=== PATIENT | female | born 1995 | race Caucasian/White ===

== ENCOUNTER 2021-08-08 19:52 | Outpatient (RCR) | payer OTHER, SELFPAY ==
--- NOTE | 2021-08-08 20:08 | PC.NURSE ---
pt presents to unit w c/o decreased movement since thursday.pt states pt has felt some movement today, the movements have not been as big . pt given marking button and instructed to press button whenever pt feels movement. pt given soda and water per pt requests. pt verbalizes understanding
[2021-08-08 20:16] VITALS: BP 120/68; PULSE 84
--- NOTE | 2021-08-08 20:28 | PC.NURSE ---
NO CTX PER PT OR PER TOCO. PT MARKED MARKER BUTTON 4 TIMES IN 20 MINUTES.
--- NOTE | 2021-08-08 20:30 | PC.NURSE ---
PT UPDATED ON DR AZALEA BAUTISTA. PT EDUCATED ON MOVEMENT AND INFORMED THAT ANY MOVEMENTS FELT AT THIS GESTATION COUNT MOVEMENT AND AT THIS GESTATIONAL AGE THE MOVEMENT MAY NOT BE VERY INTENSE. PT VERBALIZES UNDERSTANDING AND PRECAUTIONS REVIEWED.
== END 2021-08-08 20:30 | disposition home or self-care (01) ==
LOC: ANHOBOP 19:52
PROVIDERS: PCP Pediatrics; Visit Provider Obstetrics & Gynecology
DX: O36.8990 Maternal care for other specified fetal problems, unspecified trimester, not applicable or unspecified (principal); Z3A.00 Weeks of gestation of pregnancy not specified
CPT/HCPCS: 99199

== ENCOUNTER 2021-09-28 08:00 | Outpatient (RCR) | payer OTHER, SELFPAY ==
[2021-09-25 13:31] LABS: Hematocrit 37.6 % (37.0-47.0); Hemoglobin 12.9 g/dL (12.0-15.0); Mean Corpuscular HGB Conc 34.3 g/dl (32-36); Mean Corpuscular Hemoglobin 31.9 pg (26-34); Mean Corpuscular Volume 92.8 fl (80-100); Mean Platelet Volume 11.4 fl (7.4-10.4); Platelet Count Result 166 k/mm3 (150-375); Red Blood Count 4.05 M/mm3 (4.2-5.4); Red Cell Distribution Width 12.6 % (11.5-14.5); White Blood Count 12.4 K/mm3 (4.5-10.0)
[2021-09-25 13:42] LABS: Glucose 1 Hour PP 50gm Dose 121 mg/dL
[2021-09-25 14:24] LABS: HIV 1/2 Ab P24 Ag Result Negative (Negative)
[2021-09-28] MEDS: RHO(D) IMMUNE GLOBULIN 300 MCG/2 ML SYRINGE IM (09:44)
== END 2021-12-24 23:59 | disposition home or self-care (01) ==
LOC: ANHLAB 08:00
PROVIDERS: PCP Pediatrics; Visit Provider Obstetrics & Gynecology
DX: Z11.4 Encounter for screening for human immunodeficiency virus [HIV] (principal); Z29.13 Encounter for prophylactic Rho(D) immune globulin; O36.0190 Maternal care for anti-D [Rh] antibodies, unspecified trimester, not applicable or unspecified; Z3A.00 Weeks of gestation of pregnancy not specified
CPT/HCPCS: 36415; 82947; 85027; 85461; 86703; 90384; 96372; G0432; J2790

== ENCOUNTER 2021-11-04 21:11 | Observation (INO) | payer OTHER, SELFPAY ==
[2021-11-04 21:32] VITALS: BP 121/74; PULSE 94
--- NOTE | 2021-11-04 21:43 | PC.NURSE ---
2136- called Dr. Randle. informed of pt admission for bleeding. pt stated that she wiped twice today and had a thick mucousy yellow/blood discharge with wiping. no dripping. no bright red. pt is feeling alot of movement today. no sex recently. no cervical exams recently. per pt baby is measuring 3 weeks small but no other complications. orders received for NST, cervical exam. if reactive NST and closed cervical exam pt may d/c home.
[2021-11-04 21:45] VITALS: BP 125/77; PULSE 87
[2021-11-04 22:00] VITALS: BP 124/62; PULSE 83
[2021-11-04 22:17] VITALS: BMI 34.7
--- NOTE | 2021-11-04 22:30 | PC.NURSE ---
cervical exam preformed- closed/-3 station
--- NOTE | 2021-11-06 15:13 | PM.OBTRLD ---
OB - Triage/Final Diagnosis Visit Information Comments/Additional reasons for admission: I have assessed the risk for this patient, Gretel Dodson, and determined that she would benefit from observation care. Final Diagnosis (1) Vaginal discharge during : Code(s): O26.899 - Other specified related conditions, unspecified trimester; N89.8 - Other specified noninflammatory disorders of vagina Status: Acute
== END 2021-11-04 22:30 | disposition home or self-care (01) ==
PROVIDERS: Admitting Provider Obstetrics & Gynecology; PCP Nurse Practitioner Family; Visit Provider Obstetrics & Gynecology
DX: O26.893 Other specified pregnancy related conditions, third trimester (principal); N89.8 Other specified noninflammatory disorders of vagina; Z3A.34 34 weeks gestation of pregnancy
CPT/HCPCS: 59025; G0378; G0379

== ENCOUNTER 2021-11-26 12:22 | Inpatient (IN) | payer OTHER, SELFPAY ==
[2021-11-26] VITALS (23 sets, daily range): BP systolic 116–145; BP diastolic 57–86; PULSE 75–99; TEMP 37.2–37.4; BMI 36.8
--- OUTSIDE RECORDS SUMMARY | 2021-11-26 17:18 | XMS_ITS | Encounter Summary ---
:1995 Author Reason for Visit return OB visit Assessment and Plan 1. Small for gestational age fet us ? US, obstetric, 3rd trimest er Discussion Note: None recorded.Patient educational handouts: No information available. Plan of Care Reminders Provider Appointments Procedure 15 Kr crystal Randle MD 12/02/2021 4:00PM Lab None ? ? recorded. Referral None ? ? recorded. Procedures None ? ? recorded. Surgeries None ? ? recorded. Imaging US, [place] [facility] Obstetric, 3Rd 10/02/2021 [facility] [place] Trimester (Imaging) Medications No Medications Reported Notes: PNV/ tylenol prn Medications Administered None recorded. Vitals Weight Blood Pressure 183 lbs 104/62 mm[Hg] Results Lab Results None recorded. Allergies Code Code System Name Reaction Severity Onset NKDA ? ? ? Problems Name Status Onset Date Source ? Active 05/16/2021 ? Procedures Date Name Performed by ? 10/02/2021 US, Obstetric, 3Rd Trimester [facility] (Imaging)
--- OUTSIDE RECORDS SUMMARY | 2021-11-26 17:18 | XMS_ITS | Encounter Summary ---
:1995 Author Reason for Visit return OB visit Assessment and Plan 1. growth restriction Discussion Note: None recorded.Patient educational handouts: No information available. Plan of Care Reminders Provider Appointments Procedure 15 Kr crystal Randle MD 12/02/2021 4:00PM Lab None ? ? recorded. Referral None ? ? recorded. Procedures None ? ? recorded. Surgeries None ? ? recorded. Imaging None ? ? recorded. Medications No Medications Reported Notes: PNV/ tylenol prn Medications Administered None recorded. Vitals Weight Blood Pressure 192 lbs 110/67 mm[Hg] Results Lab Results None recorded. Allergies Code Code System Name Reaction Severity Onset NKDA ? ? ? Problems Name Status Onset Date Source ? Active 05/16/2021 ? Procedures Date Name Performed by ? 10/02/2021 US, Obstetric, 3Rd Trimester [place] [facility] (Imaging) [address] [place], [place] [address] (Wzvr
--- OUTSIDE RECORDS SUMMARY | 2021-11-26 17:18 | XMS_ITS ---
:1995 Author Care Team Providers Name Role Phone Jer Primary Care Provider Unavailable Allergies Code Code System Name Reaction Severity Status Onset NKDA ? Medications Name Status Start Date Stop Date ? ? amoxicillin 500 mg capsule Completed ? 12/19 azithromycin 250 mg tablet Completed ? 12/19 Depo-Provera 150 mg/mL intramuscular suspension Completed ? 03/02/2018 Inject 1 mL every 3 months by intramuscular route. medroxyprogesterone 150 mg/mL intramuscular syringe Completed ? 06/21/2020 INJECT 1 ML EVERY 3 MONTHS BY INTRAMUSCULAR ROUTE. yzojabuq-eqdmexaot-fmsgklin 3.5 mg/mL-10,000 unit/mL-0.1% eye dr ops Completed ? 06/14/2019 INSTILL ONE DROP 4 TIMES A DAY INTO RIGHT EYE FOR 7 DAYS ondansetron 4 mg disintegrating tablet Completed ? 07/24/[address]21 PLACE 1 TABLET EVERY 6 8 HOURS BY TRANSLINGUAL ROUTE. Provera 10 mg tablet Completed ? 01/15/2021 Take 1 tablet every day by oral route for 10 days. Vitamin B-6 25 mg tablet Completed ? 021 TAKE 1 TABLET 3 TIMES A DAY BY ORAL ROUTE. Notes: PNV/ tylenol prn Problems Name Status Onset Date Source ? Active 05/16/2021 ? Procedures Date Name Performed by ? 04/26/2021 US, Obstetric, 1St Trimester [place] [facility] (Imaging) [address] [place], [place] [address] ([address]) 05/21/2021 US, Obstetric, Maternal [place] [facility]
--- OUTSIDE RECORDS SUMMARY | 2021-11-26 17:19 | XMS_ITS | Encounter Summary ---
:1995 Author Reason for Visit return OB visit Assessment and Plan 1. Routine care ? glucose tolerance test, ge stational, 1-hour ? CBC ? HIV (1+2) Ab screen, serum ? Rh immune globulin screeni ng Discussion Note: None recorded.Patient educational handouts: No information available. Plan of Care Reminders Provider Appointments Procedure 15 Kr crystal Randle MD 12/02/2021 4:00PM Lab Glucose [facility] Tolerance Test, 08/28/2021 [facility] (Lab) Gestational, 1-Hour ? Cbc [facility] 08/28/2021 [facility] (Lab) ? HIV (1+2) Ab [facility] oseph Screen, Serum 08/28/2021 [facility] (Lab) ? Rh Immune [facility] ph Globulin Screening 08/28/2021 [facility] (Lab) Referral None ? ? recorded. Procedures None ? ? recorded. Surgeries None ? ? recorded. Imaging None ? ? recorded. Medications No Medications Reported Notes: PNV/ tylenol prn Medications Administered None recorded. Vitals
--- OUTSIDE RECORDS SUMMARY | 2021-11-26 17:19 | XMS_ITS ---
:1995 Author Allergies Code Code System Name Reaction Severity Status Onset NKDA ? Medications Name Status Start Date Stop Date ? ? amoxicillin 500 mg capsule Completed ? 12/19 azithromycin 250 mg tablet Completed ? 12/19 Depo-Provera 150 mg/mL intramuscular suspension Completed ? 03/02/2018 Inject 1 mL every 3 months by intramuscular route. IM right hip sj medroxyprogesterone 150 mg/mL intramuscular syringe Completed ? 06/21/2020 INJECT 1 ML EVERY 3 MONTHS BY INTRAMUSCULAR ROUTE. xdanyfxv-dwxzvzckg-ztugpbjs 3.5 mg/mL-10,000 unit/mL-0.1% eye dr ops Completed ? 06/14/2019 INSTILL ONE DROP 4 TIMES A DAY INTO RIGHT EYE FOR 7 DAYS Provera 10 mg tablet Active ? Not availab le Take 1 tablet every day by oral route for 10 days. Problems None recorded. Procedures Notes: None per pt -lw Results Lab Results Date Name Specimen Result Interpretation Description Value Range Status Address ? 06/21/2020 Pap, IG + ? Diagnosis: comment ? Jenise luz [facility] Reflex HPV PSC: 1 20 (16+18+45) Ryan [place] ? ? ? Specimen comment ? Final [facility] p Adequacy: PSC: 12 0 [address] [facility]
--- NOTE | 2021-11-26 18:21 | LDADM ---
This patient, Gretel Dodson, was admitted to Labor/Delivery/Recovery 118 on 11/26/21 at 12:22. Plans for labor, pain management and were discussed with patient. Patient/family oriented to hospital policies and general routines including ID bracelet, bed and alarms, visiting hours, pain management, procedures, bathroom and other care routines, personal items, smoking policy, room service/diet and guest tray routines, security routines, and visiting hours. Patient/Family are encouraged to report perceived risks to care and to ask questions if they do not understand what they are told or what they should do. See OBIX for further documentation.
[2021-11-26 19:11] LABS: Basophils Percent Auto 0.2 % (0.2-1.2); Eosinophils Absolute Auto 0.1 K/mm3 (0-0.3); Eosinophils Percent Auto 0.5 % (0-4.4); Hemoglobin 11.9 g/dL (12.0-15.0); Immature Granulocyte Absolute 0.09 K/mm3 (0.00-0.031); Immature Granulocyte Percent A 0.8 % (0-0.5); Lymphocytes Absolute Auto 1.69 K/mm3 (0.9-3.2); Lymphocytes Percent Auto 15.2 % (18.3-44.2); Mean Corpuscular Hemoglobin 30.4 pg (26-34); Mean Corpuscular Volume 89.5 fl (80-100); Mean Platelet Volume 12.4 fl (7.4-10.4); Monocytes Absolute Auto 0.8 K/mm3 (0.1-0.6); Monocytes Percent Auto 6.7 % (2.6-8.5); Neutrophils Absolute Auto 8.5 K/mm3 (1.3-6.7); Neutrophils Percent Auto 76.6 % (45.5-73.1); Platelet Count Result 157 k/mm3 (150-375); Red Blood Count 3.91 M/mm3 (4.2-5.4); White Blood Count 11.1 K/mm3 (4.5-10.0)
[2021-11-26] MEDS: DINOPROSTONE 10 MG VAG INSERT VAGINAL (19:17)
[2021-11-26] MEDS: LACTATED RINGERS 1,000 ML 125 ML IV CONT (23:19)
[2021-11-27] VITALS (80 sets, daily range): BP systolic 105–184; BP diastolic 48–163; PULSE 82–143; RESP 16–20; TEMP 36.2–37.2; O2SAT 95–100
--- NOTE | 2021-11-27 00:22 | WPDANESEPPF ---
Anes - Initial Pre Proc Eval Procedure: labor epidural Date/Time: 11/27/21 00:22 Surgeon: Rosette Randle MD Pre Op Diagnosis: labor pain Pre Op Diagnosis: IOL Patient Data Age: 26 Gender: F Height: 1.6 m Weight: 94.5 kg Last Vital Signs Temp 37.2 C 11/26/21 23:20 Pulse 95 11/27/21 00:18 BP 126/61 11/27/21 00:18 Pulse Ox 100 11/27/21 00:17 Allergies Allergy/AdvReac Type Severity Reaction Status Date / Time No Known Allergies Allergy Verified 11/26/21 11:36 Home Medications Medication Instructions Recorded Confirmed Type -eakq fum-folic ac-om3 1 pkg PO DAILY 11/04/21 11/26/21 History Laboratory Tests 11/26/21 11/26/21 11/26/21 18:59 18:59 18:59 WBC 11.1 K/mm3 H K/mm3 (4.5-10.0) RBC 3.91 M/mm3 L M/mm3 (4.2-5.4) Hgb 11.9 g/dL L g/dL (12.0-15.0) Hct 35.0 % L % (37.0-47.0) MCV 89.5 fl fl (80-100) MCH 30.4 pg pg (26-34) MCHC 34.0 g/dl g/dl (32-36) RDW 13.0 % % (11.5-14.5) Plt Count 157 k/mm3 k/mm3 (150-375) MPV 12.4 fl H fl (7.4-10.4) Immature Gran % (Auto) 0.8 % H % (0-0.5) Neut % (Auto) 76.6 % H % (45.5-73.1) Lymph % (Auto) 15.2 % L % (18.3-44.2) [place] % (Auto) 6.7 % % (2.6-8.5) Eos % (Auto) 0.5 % % (0-4.4) Baso % (Auto) 0.2 % % (0.2-1.2) Lymph # (Auto) 1.69 K/mm3 K/mm3 (0.9-3.2) [place] # (Auto) 0.8 K/mm3 H K/mm3 (0.1-0.6) Eos # (Auto) 0.1 K/mm3 K/mm3 (0-0.3) Baso # (Auto) 0.0 K/mm3 K/mm3 (0.0-0.1) Abs Immat Gran (auto) 0.09 K/mm3 H K/mm3 (0.00-0.031) Absolute Neuts (auto) 8.5 K/mm3 H K/mm3 (1.3-6.7) Absolute Nucleated RBC 0.0 K/mm3 K/mm3 (0.0-0.012) Nucleated RBC % 0.0 % % (0.0-0.2) RPR Pending Blood Type AB Negative Antibody Screen Positive Antibody Identification Passive Due to RH Imm Glob Antigen Identification Cancelled MICHAEL, IgG Interpret Negative MICHAEL, Poly Interpret Neg MICHAEL, Complement Interp Not Performed Patient hx anesthesia problems: none Family hx anesthesia problems: none Results Review: All pre-operative results and documents have been reviewed as part of the pre-operative evaluation. [facility] Family History Family History Grandparent Hypertension Diabetes mellitus Social History Social History (Updated 11/08/21 @ 15:55 by Cristiane Bender MA) Smoking status: Never smoker Second hand tobacco smoke exposure: No Alcohol intake: never Substance use: never Gender identity (if verbalized by the patient): Female Sexual Orientation (if Verbalized by the Patient): Straight or Heterosexual Spiritual care concerns: No Agree to blood products: No Anes - Eval Final PreProcedure Day of Procedure 11/27/21 00:22 Patient weight: obese ASA classification: II Anesthesia type and monitoring: regional epidural and standard monitoring Results Review: All pre-operative results and documents have been reviewed as part of the pre-operative evaluation. Informed Consent: The patient's anesthetic plan and its attendant risks and benefits were discussed with the patient/family/POA. Questions were solicited and answers provided to the satisfaction of the patient/family/POA.
[2021-11-27] MEDS: LACTATED RINGERS 1,000 ML 125 ML IV CONT (03:16)
[2021-11-27] MEDS: OXYTOCIN 30 UNITS/NS 500 ML 30 UNITS/500 ML BAG IV CONT (03:16)
--- NOTE | 2021-11-27 06:31 | PM.IMHP ---
H&P: HPI History of Present Illness Date/Time: 11/27/21 06:31 Gretel is a 26yo @ 37.3wks (LIANET 12/15/21) who was admitted in the PM of 11/26/21 after routine testing for IUGR revealed two prolonged decelerations in 4 hours of monitoring. BPP was 8/8, but due to the prolonged decels, decision was made for admission and induction of labor as she was term. She reported good movement. No VB or LOF. Occasional contractions. Her induction was started with cervidil, but intermittent prolonged decels recurred. She did undergo epidural placement in the event of need for c/s. The cervidil was removed and pitocin was started, however, decels continued. Her has been complicated by: - IUGR; w/ MFM consult and changing of her LIANET, EFW now 41%ile - Rh neg, s/p rhogam Chief Complaint: heart decelerations Review of Systems Review of Systems: All systems reviewed & are unremarkable except as noted in HPI and below (HPI) [facility] Family History Family History Grandparent Hypertension Diabetes mellitus Social History Social History Smoking status: Never smoker Second hand tobacco smoke exposure: No Alcohol intake: never Substance use: never Gender identity (if verbalized by the patient): Female Sexual Orientation (if Verbalized by the Patient): Straight or Heterosexual Spiritual care concerns: No Agree to blood products: No Meds Home Medications and Allergies Home Medications Medication Instructions Recorded Confirmed Type [id number]-[id number] fum-folic ac-om3 1 pkg PO DAILY 11/04/21 11/26/21 History Allergies Allergy/AdvReac Type Severity Reaction Status Date / Time No Known Allergies Allergy Verified 11/26/21 11:36 Vital Signs Vital Signs - 24 hr 11/26/21 18:38 11/26/21 18:45 11/26/21 19:00 Temperature Pulse Rate 96 99 96 Respiratory Rate Blood Pressure 142/86 H 142/86 H 139/74 Pulse Oximetry 11/26/21 19:02 11/26/21 19:30 11/26/21 19:46 Temperature 99.4 F Pulse Rate 87 87 Respiratory Rate Blood Pressure 145/85 H 141/74 H Pulse Oximetry 11/26/21 20:00 11/26/21 20:15 11/26/21 20:30 Temperature Pulse Rate 98 92 85 Respiratory Rate Blood Pressure 145/85 H 133/78 137/73 Pulse Oximetry 11/26/21 20:45 11/26/21 21:00 11/26/21 21:15 Temperature Pulse Rate 91 96 90 Respiratory Rate Blood Pressure 129/73 141/79 H 126/80 Pulse Oximetry 11/26/21 21:30 11/26/21 21:46 11/26/21 22:00 Temperature Pulse Rate 87 78 86 Respiratory Rate Blood Pressure 135/76 136/67 127/67 Pulse Oximetry 11/26/21 22:15 11/26/21 22:31 11/26/21 22:45 Temperature Pulse Rate 82 75 84 Respiratory Rate Blood Pressure 126/66 130/61 128/71 Pulse Oximetry 11/26/21 23:00 11/26/21 23:15 11/26/21 23:20 Temperature 98.9 F Pulse Rate 91 89 Respiratory Rate Blood Pressure 129/73 124/72 Pulse Oximetry 11/26/21 23:30 11/26/21 23:46 11/27/21 00:00 Temperature Pulse Rate 79 78 97 Respiratory Rate Blood Pressure 133/66 116/57 L 130/75 Pulse Oximetry 11/27/21 00:02 11/27/21 00:05 11/27/21 00:07 Temperature Pulse Rate 98 Respiratory Rate Blood Pressure 139/80 Pulse Oximetry 100 100 11/27/21 00:12 11/27/21 00:14 11/27/21 00:16 Temperature Pulse Rate 123 H 91 97 Respiratory Rate Blood Pressure 146/89 H 141/64 H 137/71 Pulse Oximetry 100 11/27/21 00:17 11/27/21 00:18 11/27/21 00:22 Temperature Pulse Rate 95 Respiratory Rate Blood Pressure 126/61 Pulse Oximetry 100 100 11/27/21 00:27 11/27/21 00:31 11/27/21 00:32 Temperature Pulse Rate 83 Respiratory Rate Blood Pressure 129/60 Pulse Oximetry 100 100 11/27/21 00:37 11/27/21 00:42 11/27/21 00:47 Temperature Pulse Rate Respiratory Rate Blood Pressure Puls
--- NOTE | 2021-11-27 06:42 | WPDHPUPDATE1 ---
History and Physical Update Update Date/Time: 11/27/21 06:42 History and Physical has been reviewed, including an updated exam of the patient. There are NO changes in the patient's condition. Risks, benefits, and alternatives have been discussed and questions answered. Patient agrees to proceed with procedure.
--- NOTE | 2021-11-27 07:18 | WPDANESEFPP ---
Anes - Eval Final PreProcedure Day of Procedure 11/27/21 07:18 Patient weight: obese Heart: regular rate and rhythm Lungs: clear to auscultation Airway: Mallampati scale class II Neurological: alert and oriented ASA classification: II Emergent: no Anesthetic plan: proceed Anesthesia type and monitoring: regional epidural and standard monitoring Results Review: All pre-operative results and documents have been reviewed as part of the pre-operative evaluation. Informed Consent: The patient's anesthetic plan and its attendant risks and benefits were discussed with the patient/family/POA. Questions were solicited and answers provided to the satisfaction of the patient/family/POA.
[2021-11-27] MEDS: ceFAZolin 2 GM/D5W 50 ML 2 GM/50 ML BAG IVPB (08:22)
--- NOTE | 2021-11-27 09:23 | PM.OBPRVD ---
OB - Delivery Note Procedure Delivery date: 11/27/21 Procedure: Procedures Operation Date: 11/27/21 08:00 <No data on this case meets the specified criteria> events: Labor Induction (due to prolonged decels noted on NST) Intrapartal events: Deceleration (continued late and prolonged decels) Induction method: per cervidil protocol Delivery augmentation: pitocin Delivery monitor: external FHT and external uterine Route of delivery: Specimen: Yes (placenta) Quantitative Blood Loss (ml): 355 Anesthesia type: Epidural Disposition: floor Baby Date of : 11/27/21 Time of : 08:47 Weeks of gestation at delivery: 37 (.3) Infant gender: Male Weight (pounds): 6 Weight (ounces): 5 presentation: vertex position: Right Occiput Posterior Placenta delivery description: Expressed cord vessel description: 3 Vessels score one minute: 9 score five minutes: 9 Narrative: She was counseled on all risks and benefits in detail. She was taken to the operating room where epidural was found to be adequate. She was then prepped and draped in the normal sterile fashion. She received 2g Ancef and a time out was performed. A Pfannenstiel incision was made in the skin and carried down to the underlying fascia. The fascia was nicked on either side of the midline and the fascial incision was extended laterally and superiorly. The fascia was then elevated and the underlying rectus muscles were dissected off the fascia, superiorly and inferiorly. The rectus muscles were then in the midline and the peritoneum was entered bluntly. Once adequate exposure was obtained, a Mobius self retractor was placed within the abdomen. A bladder flap was created. A low transverse incision was made on the lower uterine segment and clear fluid was noted. The occiput was brought to the hysterotomy and the head was easily delivered. The shoulder and body then followed without complications. The infant had spontaneous cry and the mouth and nose were bulb suctioned. The cord was clamped and cut and the infant was handed off to the awaiting pediatric nurse. A segment of the cord was collected for cord gases. The remaining cord blood was collected for typing. With pitocin infusing, the placenta delivered with gentle traction on the cord without complications. The uterus was then cleared out of all clots and debris using a clean, moist lap. The hysterotomy was then repaired in a running, interlocking fashion using 0 Vicryl. A second layer imbricating suture was then made using 0 Vicryl. An additional figure of eight using 0 Vicryl was placed in the mid posterior portion of the hysterotomy for hemostasis. The hysterotomy was found to be hemostatic and good uterine tone was noted. The bilateral adnexa were examined and found to be normal. The pelvis was cleared of all clots and fluid. The Mobius retractor was removed from the abdomen. The peritoneum, muscle, and fascia were examined and made hemostatic with bovie cautery. The fascia was then repaired using a 0 Vicryl suture in a running fashion. The subcutaneous tissue was then irrigated and made hemostatic with bovie cautery. The subcutaneous tissue was then reapproximated using 2-0 Vicryl. The skin was then closed using 4-0 Monocryl in a running subcuticular fashion. A clean dressing was then placed over the incision. Sponge, lap, needle and instrument counts were correct at the end of the procedure x2. The patient tolerated the procedure well and was taken to recovery in a stable condition. [facility] Delivery Billing Delivery Delivery: Delivery Charge
[2021-11-27] MEDS: OXYTOCIN 30 UNITS/NS 500 ML 30 UNITS/500 ML BAG 125 UNITS IV CONT (09:50)
--- NOTE | 2021-11-27 11:05 | SUR.PHASEI ---
Pt taken into nursery via stretcher to watch baby get first bath.
--- NOTE | 2021-11-27 11:10 | SUR.PHASEI ---
Report given to Jennifer Palmer RN. Pt going to room 279 for pp care once recovery completed.
[2021-11-27] MEDS: MORPHINE SULFATE (*CRX) 2 MG/ML INJ 3 MG IV PUSH (11:13)
--- NOTE | 2021-11-27 11:30 | SUR.PHASEI ---
Recovery complete. Pt instructed to let staff know when she is ready to move up to pp room. Pt still visiting with baby in nursery at this time.
--- NOTE | 2021-11-27 12:00 | SUR.PHASEI ---
Pt moved to pp floor at this time via stretcher. , spouse, belongings and chart all went up together.
--- NOTE | 2021-11-27 12:04 | PC.NURSE ---
Patient transferred to post room #279 via stretcher. Support person present. Oriented to unit, room, information board, rooming in, admission packet and security measures. Patient verbalizes understanding.
[2021-11-27 12:12] LABS: Rapid Plasma Reagin Non-Reactive (NonReactive)
[2021-11-27] MEDS: DEXTROSE 5%/0.45% SOD CHL 1,000 ML 125 ML IV CONT (12:40)
[2021-11-27] MEDS: KETOROLAC 30 MG/ML VIAL (*BKC) IV PUSH ×2 (13:56→19:11)
--- NOTE | 2021-11-27 16:04 | PC.NURSE ---
1310 - Introductions were made and mother led the discussion of her desires on how she wants to feeding her baby. Reviewed handwashing to prevent infection before and after taking care of her baby while mom finishes eating. Mother verbalizes baby fed downstairs well and it was easier on the left breast. Discussed how to watch for early feeding cues, place skin to skin, then feeding baby when infant is ready or every 2-3 hours. Reviewed positioning/alignment with the use of the written/visuals in mom and baby guide. Encouraged mother with infant skin to skin, then to the breast. Baby to the right breast in football position using nipple to nose no latch. Nipples flat are a grade 2 on everting. Attempting for 10-15 min. has a 140 degree gape, mother brings baby to the breast and baby doesn't attempt to latch and at times doses off. Mom encouraged with skin to skin vertically between her breast, hand expressed colostrum to infants mouth and demonstrates understanding of how to stimulate baby. Reviewed there is to be no pain with , how to detach from the breast if there is a latch, visuals to watch for to confirm effective which confirm ineffective at this time. Reviewed effective latching with resources tool/handout/mom and baby guide. Infant was unable to latch. 1330 - RN assisted mother with baby to the left breast in football position with no latch, falt nipple grade 2 and the same result as with the right breast. Discussed tool, techniques and options with risk and benefits. Mother is understanding of feeding as needed to meet requirements. Mother has verbalized understanding/ demonstrated watching for feeding cues for responsive feeding or how to stimulate to initiate from the start of the last feeding. Mother voiced understanding to feed when she sees feeding cues, 8-12 times in 24 hours approximately every 2-3 hours from the start of the last feeding or she has discomfort with nursing. 1400 - Breast pump provided due to ineffective of a 37 3/7 EGA infant. Reviewed information regarding pump care, hand washing, nipple care and pumping 8 times in 24 hours (1-2 at night) for 10-15 minutes. Discussed she may want to pump after feedings or between feedings. If after feeding, rest for 5-10 minutes. Get something to eat/drink, use the restroom, then pump. Collection and storage of breast milk per mom and baby guide. Encouraged mom to place infant skin to skin, breast massage and use hand expression and/or a breast pump in a relaxing atmosphere. Reviewed recording pumping schedule on the feeding sheet or pumping log. Referred to the visual handout along with the mom and baby guide as a resource and when to call a provider. Reported to primary RN.
[2021-11-28 05:00] VITALS: BP 124/72; PULSE 80; RESP 18; TEMP 37
[2021-11-28 05:37] LABS: Basophils Percent Auto 0.2 % (0.2-1.2); Eosinophils Percent Auto 0.3 % (0-4.4); Hematocrit 31.2 % (37.0-47.0); Hemoglobin 10.1 g/dL (12.0-15.0); Immature Granulocyte Absolute 0.06 K/mm3 (0.00-0.031); Immature Granulocyte Percent A 0.6 % (0-0.5); Lymphocytes Absolute Auto 1.26 K/mm3 (0.9-3.2); Mean Corpuscular HGB Conc 32.4 g/dl (32-36); Mean Corpuscular Hemoglobin 30.5 pg (26-34); Mean Corpuscular Volume 94.3 fl (80-100); Monocytes Absolute Auto 0.8 K/mm3 (0.1-0.6); Monocytes Percent Auto 7.5 % (2.6-8.5); Neutrophils Absolute Auto 8.3 K/mm3 (1.3-6.7); Neutrophils Percent Auto 79.4 % (45.5-73.1); Platelet Count Result 122 k/mm3 (150-375); Red Blood Count 3.31 M/mm3 (4.2-5.4); Red Cell Distribution Width 13.2 % (11.5-14.5); White Blood Count 10.5 K/mm3 (4.5-10.0)
[2021-11-28 07:35] VITALS: BP 122/77; PULSE 108; RESP 16; TEMP 36.7; O2SAT 99
[2021-11-28] MEDS: MULTIVIT/MIN/PREN/FOL AC/IRON TABLET 1 TAB PO (07:54)
[2021-11-28] MEDS: LORATADINE 10 MG TABLET PO (07:54)
[2021-11-28] MEDS: DOCUSATE SODIUM 100 MG CAPSULE PO ×2 (07:54→17:10)
[2021-11-28] MEDS: IBUPROFEN 600 MG TABLET PO ×3 (07:54→18:58)
--- NOTE | 2021-11-28 09:16 | P.PNOB_ITS ---
OB - PN: Subj Subjective Date/time seen: 11/28/21 09:16 26-year-old primigravid patient 1 day status post for IUGR and decelerations. She is ambulating voiding tolerating regular diet and pain med icine is adequately controlling her discomfort. She will be breast feeding but at this point the baby's having little bit of trouble latching on. Otherwise she has no significant complaints or concerns today and overall doing very well. OB - PN: Obj Data Labs CBC & Chem 7: 11/28/21 04:52 Labs: Laboratory Results - last 24 hr 11/26/21 11/28/21 18:59 04:52 WBC 10.5 H RBC 3.31 L Hgb 10.1 L Hct 31.2 L MCV 94.3 D MCH 30.5 MCHC 32.4 RDW 13.2 Plt Count 122 L MPV 12.0 H Immature Gran % (Auto) 0.6 H Neut % (Auto) 79.4 H Lymph % (Auto) 12.0 L [place] % (Auto) 7.5 Eos % (Auto) 0.3 Baso % (Auto) 0.2 Lymph # (Auto) 1.26 [place] # (Auto) 0.8 H Eos # (Auto) 0.0 Baso # (Auto) 0.0 Abs Immat Gran (auto) 0.06 H Absolute Neuts (auto) 8.3 H Absolute Nucleated RBC 0.0 Nucleated RBC % 0.0 RPR Non-reactive OB - PN A/P Plan day: 1 Plan: routine care Comments: Continue to work with breast feeding. Baby will be circumcised prior to discharge which will likely be over the weekend. Time Spent With Patient Time: Total time spent is greater than 50% in coordination of care (as documented) at patient's floor/unit and/or counseling patient: Time with patient: less than 15 minutes
--- NOTE | 2021-11-28 09:30 | WPDANLDPN2 ---
Anes-Prog Note L&D Date/Time: 11/28/21 09:30 Comfortable throughout: section Neuraxial method: epidural Epidural/Spinal procedure site: clean & non-tender Neuro status: Neuro function grossly intact. Cardiovascular status: normal Respiratory status: normal Airway patency: baseline Mental status: baseline Post-Op hydration status: normal Vital Signs: Last Vital Signs Temp 37.0 C 11/28/21 05:00 Pulse 80 11/28/21 05:00 Resp 18 11/28/21 05:00 BP 124/72 11/28/21 05:00 Pulse Ox 99 11/27/21 15:30 Pain score (VAS): 3 I/O: Intake & Output 11/27/21 11/28/21 11/28/21 23:59 07:59 15:59 Intake Total 1500 700 Output Total 200 1200 Balance 1300 -500 Post-procedural complaints: none Patient feedback: Patient satisfied with anesthetic care.
--- NOTE | 2021-11-28 09:30 | WPDANLDNPN2 ---
Anes-Prog Note L&D-Neuraxial Date/Time: 11/28/21 09:30 Neuraxial medications: epidural PF morphine Opiod-related complaints: none Patient feedback: Patient satisfied with post-operative pain management.
--- NOTE | 2021-11-28 11:05 | PC.NURSE ---
0800 - Mother led conversation with her experience with feeding baby so far. Infant has mostly been sleepy with good efforts at 0300. Mother has a pumping schedule related to ineffective feedings and has been supplemented with formula. Mother has decided she would like to attempt to breastfeed with a nipple shield. Baby is sleepy with no efforts at this time. Reviewed skin to skin and hand expression. Mom will call out when feeding cues are visualized. 0907 - RN called to the room for assisting to breast. is skin to skin with dad and feeding cues are visualized. Infant is placed skin to skin with mom once she finishes in the restroom. Feeding cues are seen with baby vertically between the breast, then baby makes no efforts at the breast. Mom is wanting to try to encourage latching with the nipple shield tool. Risks and benefits discussed. Attempts with the nipple shield with only two ineffective latches. Infant is sleepy.
[2021-11-28] MEDS: SIMETHICONE 80 MG TAB.CHEW PO (17:09)
[2021-11-28] MEDS: HYDROcodone/acetaminophen (*CRX) 5-325 MG TABLET 1 TAB PO (17:09)
[2021-11-28 18:42] VITALS: BP 119/64; PULSE 77; RESP 16; TEMP 37.2
[2021-11-29] MEDS: HYDROcodone/acetaminophen (*CRX) 5-325 MG TABLET 1 TAB PO ×4 (01:34→23:00)
[2021-11-29] MEDS: IBUPROFEN 600 MG TABLET PO ×4 (01:34→22:59)
[2021-11-29] MEDS: HYDROcodone/acetaminophen (*CRX) 10-325 MG TABLET 1 TAB PO (05:12)
[2021-11-29] MEDS: DOCUSATE SODIUM 100 MG CAPSULE PO ×2 (07:48→16:46)
[2021-11-29] MEDS: MULTIVIT/MIN/PREN/FOL AC/IRON TABLET 1 TAB PO (07:48)
[2021-11-29] MEDS: LORATADINE 10 MG TABLET PO (07:48)
[2021-11-29 07:50] VITALS: BP 138/78; PULSE 96; RESP 18; TEMP 36.3; O2SAT 99
--- NOTE | 2021-11-29 10:21 | PC.NURSE ---
0800 - Introductions were made and mother led the conversation with regards to her experience feeding her baby. Reminded parents to use good handwashing to prevent infection. Infant has had adequate feedings in the past 24 hours with attempting to breast, pump, supplement and meets the outcomes for weight, output and jaundice. Mother states she feels confident to continue her feeding plan at home. Reviewed production of human milk, transition of milk, signs of adequate intake and engorgement prevention/relief and when to call the infant care provider using the mom and baby guide for reinforced learning. Reviewed medications mother is taking with information provided by [facility]. Reviewed community resources and outpatient services as listed in the mom and baby guide/[facility] website. Reinforced watching for feeding cues with responsive feeding and how to stimulate infant to initiate feeding three hours from the start of the last feeding. Mother voiced understanding of information shared. Reported to primary RN.
--- NOTE | 2021-11-29 12:45 | P.PNOB_ITS ---
OB - PN: Subj Subjective Date/time seen: 11/29/21 12:03 Narrative: POD#2 Gretel reports doing well today. 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 Her pain is controlled. She is tolerating regular diet, voiding, passing gas, and ambulating without issues. She denies any issues with her incision. She is breast feeding, having issues with latch. She would like her son circumcised. OB - PN: Obj Data Labs CBC & Chem 7: 11/28/21 04:52 OB - PN A/P Assessment and Plan (1) S/P section: Code(s): Z98.891 - History of uterine scar from previous surgery Status: Acute Plan day: 2 Plan: routine care and discharge home (tomorrow) Comments: - Nursing/ for nursing help - Pelvic rest; take meds as prescribed - Incision care/no heavy lifting discussed - ER return precautions: fever, n/v/abd pain, bleeding, HTN Time Spent With Patient Time: Total time spent is greater than 50% in coordination of care (as documented) at patient's floor/unit and/or counseling patient: Review of Systems Constitutional: Constitutional: Denies chills, Denies fever(s) and Denies headache(s) Eyes: Eyes: Denies change in vision ENT: Denies dizziness and Denies headache(s) Cardiovascular: Cardiovascular: Denies chest pain, Denies palpitations and Denies dyspnea Respiratory: Respiratory: Denies cough and Denies dyspnea Gastrointestinal: Gastrointestinal: Denies nausea and Denies vomiting Genitourinary: Comments: normal bleeding Neurologic: Denies dizziness and Denies headache(s) Endocrine: Endocrine: Denies palpitations Exam Const: General: cooperative, comfortable and no acute distress Orientation/consciousness: patient oriented x3 Resp: Effort & Inspection: normal respiratory effort Auscultation: clear to auscultation bilaterally Cardio: Rate: regular rate GI: Inspection: non-distended and incision (covered with clean dressing) GI Palp: Yes abdominal tenderness (appropriate) and Yes Soft to palpation Auscultation: normal bowel sounds : Other: fundus firm Skin: General skin exam: normal color Neuro: General: patient oriented x3 Extrem: General: normal to inspection Psych: Appearance: grossly normal Affect: normal affect Attitude: cooperative
[2021-11-29 20:05] VITALS: BP 123/60; PULSE 90; RESP 18; TEMP 36.6
[2021-11-30] MEDS: IBUPROFEN 600 MG TABLET PO ×2 (06:38→12:45)
[2021-11-30] MEDS: HYDROcodone/acetaminophen (*CRX) 10-325 MG TABLET 1 TAB PO ×2 (06:40→12:46)
[2021-11-30 07:30] VITALS: BP 135/79; PULSE 95; RESP 18; TEMP 36.9; O2SAT 98
[2021-11-30] MEDS: MULTIVIT/MIN/PREN/FOL AC/IRON TABLET 1 TAB PO (07:36)
--- NOTE | 2021-11-30 08:58 | PM.OBDSVD ---
DS: Admitting Diagnosis Discharge Date 11/30/21 Admitting Diagnosis heart decelerations DS: Discharge Diagnosis Discharge Diagnosis (1) S/P section: Code(s): Z98.891 - History of uterine scar from previous surgery Status: Acute (2) heart deceleration: Status: Acute OB - DS: Summary OB Procedures : NST and Ultrasound OB Procedures Intrapartum: low cervical, transverse OB Procedures: : None Peripartum Data Delivery Method: Section Procedures: Procedures Operation Date: 11/27/21 08:00 Actual Procedure Side Surgeon p Section Not Applicable Rosette Randle MD complications: none 1: Gender: Male Disposition of : home Status at Discharge Functional status at discharge: independent ambulation Overall status at discharge: patient is back to baseline Time Spent with Patient Time attestation: Total time spent providing and/or coordinating discharge services: Time spent: Less than 30 minutes Exam Const: General: cooperative, comfortable and no acute distress Nutritional Appearance: obese Orientation/consciousness: patient oriented x3 Resp: Effort & Inspection: normal respiratory effort Auscultation: clear to auscultation bilaterally Cardio: Rate: regular rate GI: Inspection: non-distended and incision (covered with clean dressing) GI Palp: No abdominal tenderness and Yes Soft to palpation Auscultation: normal bowel sounds : Other: fundus firm Skin: General skin exam: normal color Neuro: General: patient oriented x3 Extrem: General: normal to inspection Psych: Appearance: grossly normal Affect: normal affect Attitude: cooperative DS: Data Data Completed and Pending Completed studies during hospitalization: Pending at discharge 11/27/21 08:49 Surgical [PTH] Routine Discharge Plan Discharge Attending physician on discharge: Rosette Randle Discharging Clinician: Rosette Randle Anticipated Discharge Date/Time: 11/30/21 11:00 Patient Disposition: Home, Self-Care Activity: may shower, may drive after 2 weeks and pelvic rest Diet: regular Discharge Instructions: No heavy lifting >10lbs for 6 weeks Remove dressing by 12/03/21 Patient Instructions: Antibiotic Form Stand Alone Forms: General Discharge Information Follow-up/Referrals: Rosette Randle MD [Physician] - 2 Weeks Discharge Medications: New acetaminophen [Mapap (acetaminophen)] 325 mg Tablet 650 mg PO Q6H PRN (Reason: Mild Pain (1-3)) 10 Days Qty: 60 RF: 0 hydrocodone-acetaminophen 5-325 mg Tablet 1 tablet PO Q3H PRN (Reason: Moderate Pain (4-6)) 3 Days Qty: 24 RF: 0 docusate sodium 100 mg Capsule 100 mg PO BID 30 Days Qty: 60 RF: 0 ibuprofen 600 mg Tablet 600 mg PO Q6H PRN (Reason: Cramping) 10 Days Qty: 40 RF: 0 Continued [id number] fum-folic [id number] mg-mcg-mg Combo Pack 1 pkg PO DAILY 90 Days Qty: 90 RF: 3 Date of admission: 11/26/21 12:22 Primary Care Provider: Agusto,Nash Palmer Admitting Provider: Rosette Randle Attending physician on admission: Rosette Randle Condition: Stable
--- NOTE | 2021-11-30 12:19 | PC.NURSE ---
Patient to view the discharge video Mother & Baby Care, The First Two Weeks online. Patient was given the opportunity and encouraged to ask questions. Patient verbalized understanding of information shared and has been given the mother/baby guide for home reference.
[2021-12-02 12:27] VITALS: BP 135/73; PULSE 89; RESP 20; TEMP 36.8; O2SAT 100
== END 2021-11-30 13:15 | disposition home or self-care (01) | DRG 788 ==
LOC: ANHLDR 11-27 08:58 → ANHOB2 11-27 12:43
PROVIDERS: Admitting Provider Obstetrics & Gynecology; PCP Nurse Practitioner Family; Visit Provider Obstetrics & Gynecology
PROC: 10D00Z1 Extraction of Products of Conception, Low, Open Approach (ICD-10-PCS; CPT 59514; principal; 2021-11-27 08:00)
DX: O76 Abnormality in fetal heart rate and rhythm complicating labor and delivery (principal); O36.5930 Maternal care for other known or suspected poor fetal growth, third trimester, not applicable or unspecified; Z3A.37 37 weeks gestation of pregnancy; Z37.0 Single live birth
CPT/HCPCS: 36415; 59025; 76816; 76819; 85025; 86592; 86850; 86880; 86900; 86901; 86902; 88307; A9270; J0131; J0690; J1885; J2270; J2274; J2405; J2590; J2795; J7120

== ENCOUNTER 2021-11-26 12:22 | Outpatient (RCR) | payer OTHER, SELFPAY ==
[2021-10-29 16:15] VITALS: BP 125/66; PULSE 101
[2021-11-01 15:37] VITALS: BP 125/68; PULSE 97
[2021-11-05 17:03] VITALS: BP 130/69; PULSE 95
[2021-11-08 16:30] VITALS: BP 132/68; PULSE 108
[2021-11-12 17:32] VITALS: BP 119/67; PULSE 95
[2021-11-15 16:00] VITALS: BP 139/84; PULSE 108
[2021-11-19 13:21] VITALS: BP 130/76; PULSE 105
[2021-11-22 17:10] VITALS: BP 125/74; PULSE 95
--- NOTE | ~2021-11-26 | US_ITS ---
EXAMINATION: US OB follow up w BPP DATE: 11/26/2021 13:52 INDICATION: Intrauterine growth restriction. Third trimester. TECHNIQUE: Real-time pelvic ultrasound was performed. COMPARISON: Ultrasound 11/19/2021, 10/29/21 FINDINGS: There is a single living fetus in vertex presentation. The placenta is posterior. heart rate i s 144 beats per minute (bpm). The amniotic fluid index is 10.0 cm, which is normal. The following biometric data were obtained: Biparietal diameter (BPD): 8.9 cm; head circumference (HC): 32.8 cm; abdominal circumference (AC): 32 .8 cm; femur length (FL): 7.2 cm. These measurements are concordant. Estimated weight is 3002 g +/- 450 g, which correlates with the 41st percentile when 12/15/21 is used as estimated date of delivery. As single measurements, these parameters are each equal to the following estimated gestational ages: BPD: 36 weeks 1 days. HC: 37 weeks 2 days. AC: 36 weeks 5 days. FL: 36 weeks 5 days. estimated gestational age based solely on measurements from this exam is 36 weeks 5 days +/- 2 weeks 4 days. Biophysical profile performed by the technologist: breathing (30 sec sustained breathing in 30 minutes): 2 out of 2 movement (3 gross body movements in 30 minutes): 2 out of 2 tone (one episode of uurghdl-smdtturez-jbnjpwv limb movement): 2 out of 2 Amniotic fluid pocket (2 cm): 2 out of 2 Total score: 8 out of 8 IMPRESSION: 1. Single living fetus in vertex presentation. 2. Estimated weight is 3002 g +/- 450 g, which correlates with the 41st percentile when 2 is used as estimated date of delivery. 3. Biophysical profile 8 out of 8. Reviewed, dictated and finalized at location A. ULAR KNIFE MACHINE CUTTER IMPRESSION: 1. Single living fetus in vertex presentation. 2. Estimated weight is 3002 g +/- 450 g, which correlates with the 41st percentile when 12/15/21 is used as estimated date of delivery. 3. Biophysical profile 8 out of 8.
--- NOTE | ~2021-11-26 | US_ITS ---
EXAMINATION: US OB BPP wo non-stress DATE: 10/29/2021 16:05 INDICATION: Small for gestational age. Third trimester. TECHNIQUE: Real-time pelvic ultrasound was performed. COMPARISON: None. FINDINGS: There is a single living fetus in vertex presentation. The placenta is posterior. heart rate i s 135 beats per minute (bpm). The deepest vertical pocket of amniotic fluid is 4.0 cm. Biophysical profile performed by the technologist: breathing (30 sec sustained breathing in 30 minutes): 2 out of 2 movement (3 gross body movements in 30 minutes): 2 out of 2 tone (one episode of yjpxgde-ebvqsnpar-faqanjx limb movement): 2 out of 2 Amniotic fluid pocket (2 cm): 2 out of 2 Total score: 8 out of 8 IMPRESSION: 1. Single living fetus in vertex presentation. 2. Biophysical profile 8 out of 8. Reviewed, dictated and finalized at location B. ICER
--- NOTE | ~2021-11-26 | US_ITS ---
EXAMINATION: US OB BPP wo non-stress DATE: 11/19/2021 14:36 INDICATION: Intrauterine growth retardation during third trimester . TECHNIQUE: Real-time pelvic ultrasound was performed. The interpreting radiologist was not present fo r the study. COMPARISON: None. FINDINGS: There is a single living fetus in vertex presentation. The placenta is posterior. heart rate i s 138 beats per minute (bpm). Biophysical profile performed by the technologist: breathing (30 sec sustained breathing in 30 minutes): 2 out of 2 movement (3 gross body movements in 30 minutes): 2 out of 2 tone (one episode of nyehogn-qbiqfxkdz-jpzwgec limb movement): 2 out of 2 Amniotic fluid pocket (2 cm): 2 out of 2 Total score: 8 out of 8 IMPRESSION: 1. Single living fetus in vertex presentation with heart rate of 138 bpm. 2. Biophysical profile 8 out of 8. Reviewed, dictated and finalized at location A. [employer]
--- NOTE | ~2021-11-26 | US_ITS ---
EXAMINATION: US OB BPP wo non-stress DATE: 11/12/2021 17:34 INDICATION: Small for gestational age during third trimester TECHNIQUE: Real-time pelvic ultrasound was performed. The interpreting radiologist was not present fo r the study. COMPARISON: 11/05/2021 FINDINGS: There is a single living fetus in vertex presentation. The placenta is posterior. heart rate is 146 beats per minute (bpm). The amniotic fluid index is subjectively normal. Biophysical profile performed by the technologist: breathing (30 sec sustained breathing in 30 minutes): 2 out of 2 movement (3 gross body movements in 30 minutes): 2 out of 2 tone (one episode of qobqymi-vzogkqust-hxsotal limb movement): 2 out of 2 Amniotic fluid pocket (2 cm): 2 out of 2 Total score: 8 out of 8 IMPRESSION: 1. Single living fetus in vertex presentation. 2. Biophysical profile 8 out of 8. Reviewed, dictated and finalized at location F. CART DRIVER
--- NOTE | ~2021-11-26 | US_ITS ---
EXAMINATION: US OB BPP wo non-stress EXAM DATE: 11/05/2021 18:12 INDICATION: IUGR BPP 3rd trimester. TECHNIQUE: Pelvic obstetrical transabdominal sonogram was performed by a technologist. There are mu ltiple grayscale and Doppler images available for interpretation. Comparison is made to prior examina tion from 10/29/2021. FINDINGS: There is a single fetus identified in vertex presentation with a heart rate of 158 beats pe r minute. The placenta is located in the posterior position. There is no sonographic evidence of ret roplacental hemorrhage identified. BIOPHYSICAL PROFILE (performed by the technologist) breathing (30 sec sustained breathing in 30 minutes): 2 out of 2 movement (3 gross body movements in 30 minutes): 2 out of 2 tone (one episode of ufiorfu-xdjcavihi-ysmmjmn limb movement): 2 out of 2 Amniotic fluid pocket (2 cm): 2 out of 2 Total score: 8 out of 8 IMPRESSION: 1. Single fetus with heart rate of 158 bpm. 2. Normal biophysical profile score of 8 out of 8. Reviewed, dictated and finalized at location A. 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
[2021-11-26 13:20] VITALS: BP 122/66; PULSE 90
--- NOTE | 2021-11-26 16:25 | PC.NURSE ---
1615- Dr Randle at bedside discussing plan of care with patient. Patient may be discharged to home at 1700 as long as tracing looks normal. patiet to come back for NST on Thursday.
== END 2021-12-24 09:30 | disposition home or self-care (01) ==
LOC: ANHOBOP 12:22
PROVIDERS: PCP Pediatrics; Visit Provider Obstetrics & Gynecology
DX: O36.5930 Maternal care for other known or suspected poor fetal growth, third trimester, not applicable or unspecified (principal); Z3A.33 33 weeks gestation of pregnancy; Z3A.34 34 weeks gestation of pregnancy; Z3A.35 35 weeks gestation of pregnancy; Z3A.36 36 weeks gestation of pregnancy; Z3A.37 37 weeks gestation of pregnancy
CPT/HCPCS: 59025; 76816; 76819

== ENCOUNTER 2023-04-11 09:59 | Outpatient (RCR) | payer BC, OTHER, SELFPAY ==
[2023-04-11 11:42] LABS: Basophils Percent Auto 0.2 % (0.2-1.2); Eosinophils Absolute Auto 0.1 K/mm3 (0-0.3); Eosinophils Percent Auto 0.6 % (0-4.4); Hematocrit 34.4 % (37.0-47.0); Hemoglobin 11.7 g/dL (12.0-15.0); Immature Granulocyte Absolute 0.04 K/mm3 (0.00-0.031); Immature Granulocyte Percent A 0.4 % (0-0.5); Lymphocytes Absolute Auto 1.92 K/mm3 (0.9-3.2); Lymphocytes Percent Auto 18.9 % (18.3-44.2); Mean Corpuscular Hemoglobin 31.5 pg (26-34); Mean Corpuscular Volume 92.7 fl (80-100); Mean Platelet Volume 11.1 fl (7.4-10.4); Monocytes Absolute Auto 0.4 K/mm3 (0.1-0.6); Monocytes Percent Auto 4.3 % (2.6-8.5); Neutrophils Absolute Auto 7.7 K/mm3 (1.3-6.7); Neutrophils Percent Auto 75.6 % (45.5-73.1); Platelet Count Result 163 k/mm3 (150-375); Red Blood Count 3.71 M/mm3 (4.2-5.4); Red Cell Distribution Width 13.3 % (11.5-14.5); White Blood Count 10.2 K/mm3 (4.5-10.0)
[2023-04-11 11:53] LABS: Glucose 1 Hour PP 50gm Dose 118 mg/dL
[2023-04-11 12:34] LABS: HIV 1/2 Ab P24 Ag Result Negative (Negative)
[2023-04-14] MEDS: RHO(D) IMMUNE GLOBULIN 300 MCG/2 ML SYRINGE IM (10:51)
== END 2023-07-10 23:59 | disposition home or self-care (01) ==
LOC: ANHLAB 09:59
PROVIDERS: PCP Nurse Practitioner Family; Visit Provider Obstetrics & Gynecology
DX: Z11.4 Encounter for screening for human immunodeficiency virus [HIV] (principal); Z29.13 Encounter for prophylactic Rho(D) immune globulin; O36.0190 Maternal care for anti-D [Rh] antibodies, unspecified trimester, not applicable or unspecified; Z3A.00 Weeks of gestation of pregnancy not specified
CPT/HCPCS: 36415; 82947; 85025; 85461; 86703; 86850; 86900; 86901; 90384; 96372; G0432; J2790